=== PATIENT | male | born 1995 | race African-American/Black ===

== ENCOUNTER 2020-06-30 08:09 | Emergency (ER) | payer MEDICAID, OTHER ==
[~2020-06-30] VITALS: Ht 175.3 cm; Wt 80.0 kg
[2020-06-30 08:16] VITALS: BP 122/73
== END 2020-06-30 08:37 ==
LOC: ER 08:26
DX: R06.02 Shortness of breath (principal); S86.919A Strain of unspecified muscle(s) and tendon(s) at lower leg level, unspecified leg, initial encounter; J45.909 Unspecified asthma, uncomplicated; R56.9 Unspecified convulsions; Y35.93XA Legal intervention, means unspecified, suspect injured, initial encounter; Y93.9 Activity, unspecified; Y92.9 Unspecified place or not applicable; Y99.9 Unspecified external cause status
CPT/HCPCS: 99283